=== PATIENT | female | born 2000 | race African-American/Black ===

== ENCOUNTER 2023-03-24 08:45 | Emergency (ER) | payer BC ==
[2023-03-24 08:59] VITALS: BP 103/65; PULSE 92; RESP 20; TEMP 99.5
[2023-03-24] MEDS ORDERED: ACETAMINOPHEN 325 MG TABLET (FP) PO ONE (09:37)
[2023-03-24] MEDS ORDERED: ACETAMINOPHEN 325 MG TABLET (FP) ONE (09:49)
== END 2023-03-24 10:56 | disposition home or self-care (01) ==
LOC: JER 08:45 → JERFT 08:45 → JER 10:56
DX: R05.9 Cough, unspecified (principal); R09.81 Nasal congestion; M79.10 Myalgia, unspecified site; B97.4 Respiratory syncytial virus as the cause of diseases classified elsewhere; R43.9 Unspecified disturbances of smell and taste; Z20.822 Contact with and (suspected) exposure to COVID-19
CPT/HCPCS: 0241U-QW; 99283-25